=== PATIENT | female | born 1965 | race Caucasian/White ===

== ENCOUNTER 2017-07-16 17:19 | Emergency (ER) | payer OTHER ==
[~2017-07-16] VITALS: Ht 160 cm; Wt 71.7 kg
[2017-07-16 17:38] VITALS: BP_SYST 107
--- NOTE | 2017-07-16 17:51 | NUR ---
Patient to ER bed 8 to gown for evaluation. Side rails up. Report given to Teddy HOWELL.
--- NOTE | 2017-07-16 17:52 | NUR ---
Pt presents to ED c/o cough and congestion x 4 days.Pt sent by pMD for further evaluation. Pt h/o chronic ITP. Pt reports productive cough.
--- NOTE | 2017-07-16 17:55 | NUR ---
DAREK Morales at bedside examining patient.
--- NOTE | 2017-07-16 18:00 | NUR ---
Lab at bedside for draw.
--- NOTE | 2017-07-16 18:15 | NUR ---
Pt receiving breathing tx.
[2017-07-16 18:34] LABS: BASOPHILS # (AUTO) 0.1 K/uL (0.0-0.2); BASOPHILS % (AUTO) 0.7 % (0.0-2.0); EOSINOPHILS # (AUTO) 0.2 K/uL (0.0-0.4); EOSINOPHILS % (AUTO) 1.7 % (0.0-4.0); HEMATOCRIT 44.6 % (36-48); HEMOGLOBIN 14.5 g/dL (12.0-16.0); LYMPHOCYTES # (AUTO) 2.6 K/uL (1.0-5.5); LYMPHOCYTES % (AUTO) 26.2 % (20.5-51.5); MEAN CORPUSCULAR HEMOGLOBIN 29 pg (27-31); MEAN CORPUSCULAR HGB CONC 33 % (32-36); MEAN CORPUSCULAR VOLUME 89 fL (79.0-98.0); MONOCYTES # (AUTO) 0.7 K/uL (0.0-1.0); MONOCYTES % (AUTO) 6.6 % (1.7-9.3); NEUTROPHILS # (AUTO) 6.4 K/uL (1.8-7.7); RED CELL DISTRIBUTION WIDTH 13.2 % (9.0-15.0)
--- NOTE | 2017-07-16 18:43 | NUR ---
Critical lab PLT 17 given Courtney Morales NP
[2017-07-16 18:44] LABS: PLATELET COUNT (AUTO) 17 K/uL (130-430)
[2017-07-16 18:45] LABS: NEUTROPHILS % (AUTO) 64.8 % (40.0-70.0)
[2017-07-16] MEDS ORDERED: IPRATROPIUM/ALBUTEROL SULFATE 3 ML AMPUL.NEB INH ONE (18:45)
[2017-07-16] MEDS ORDERED: KETOROLAC TROMETHAMINE 60 MG/2 ML VIAL IM ONE (19:00)
[2017-07-16] MEDS ORDERED: AMOXICILLIN/CLAVULANATE POTASSIUM 875 MG TABLET PO ONE (19:00)
[2017-07-16] MEDS ORDERED: DEXAMETHASONE SOD PHOSPHATE 10 MG/ML VIAL IM ONE (19:00)
--- NOTE | 2017-07-16 19:00 | NUR ---
Pt medicated tolerated well.
--- NOTE | 2017-07-16 19:10 | NUR ---
Patient care endorsed to me. Patient in ER C/O cough and congestion for 4 days. Patient received breathing treatment in ER and medications. No signs of acute distress.
[2017-07-16 19:53] VITALS: BP_SYST 119
--- NOTE | 2017-07-16 19:53 | NUR ---
Patient given written and verbal discharge instructions and verbalizes understanding. ER [employer] Andrew Valdez discussed with patient the results and treatment provided. Patient in stable condition. ID arm band removed. Rx of medrol, tessalon, promethazine/codeine & augmentin given. Patient educated on pain management and to follow up with PMD. Pain Scale 0/10. Opportunity for questions provided and answered.
== END 2017-07-16 19:53 | disposition home or self-care (01) ==
LOC: SED 17:19
DX: J01.90 Acute sinusitis, unspecified (principal); D69.3 Immune thrombocytopenic purpura
CPT/HCPCS: 36415; 71010; 85025; 94640; 96372; 99285; J1100; J1885